=== PATIENT | male | born 1980 | race Caucasian/White ===

== ENCOUNTER 2022-06-13 04:53 | Emergency (ER) | payer BC, OTHER ==
[~2022-06-13] VITALS: Ht 177.8 cm; Wt 95.3 kg
[2022-06-13 05:17] VITALS: BP_SYST 120
[2022-06-13] MEDS ORDERED: HYDR-3917 PO (06:38)
[2022-06-13] MEDS ORDERED: IBUP-1971 PO (06:38)
[2022-06-13 08:05] VITALS: BP_SYST 120
== END 2022-06-13 08:05 | disposition home or self-care (01) ==
LOC: SED 04:53
DX: S52.532A Colles' fracture of left radius, initial encounter for closed fracture (principal); S63.501A Unspecified sprain of right wrist, initial encounter; Z88.0 Allergy status to penicillin; Z79.899 Other long term (current) drug therapy; W01.0XXA Fall on same level from slipping, tripping and stumbling without subsequent striking against object, initial encounter; Y93.89 Activity, other specified; Y92.89 Other specified places as the place of occurrence of the external cause; Y99.8 Other external cause status
CPT/HCPCS: 99283